=== PATIENT | male | born 1985 | race Caucasian/White ===

== ENCOUNTER 2016-09-26 07:28 | Emergency (ER) | payer SELFPAY ==
[~2016-09-26] VITALS: Ht 182.9 cm; Wt 74.2 kg
[2016-09-26 07:33] VITALS: BP 130/87
[2016-09-26] MEDS ORDERED: IBUP200T5 PO (07:49)
[2016-09-26] MEDS ORDERED: KETOROLAC 30 MG/1 ML ONE (07:51)
[2016-09-26] MEDS ORDERED: KETOROLAC 30 MG/1 ML IM ONE (08:00)
== END 2016-09-26 09:43 | disposition home or self-care (01) ==
LOC: ED 08:54
DX: M48.54XA Collapsed vertebra, not elsewhere classified, thoracic region, initial encounter for fracture (principal); M54.16 Radiculopathy, lumbar region; X58.XXXA Exposure to other specified factors, initial encounter; Y93.89 Activity, other specified; Y92.89 Other specified places as the place of occurrence of the external cause; Y99.8 Other external cause status
CPT/HCPCS: 72110; 96372; 99284; J1885

== ENCOUNTER 2016-10-08 20:48 | Emergency (ER) | payer SELFPAY ==
[~2016-10-08] VITALS: Ht 182.9 cm; Wt 75.0 kg
[~2016-10-08 20:48] MED LIST: IBUP200T5 PO
[2016-10-08] MEDS ORDERED: KETOROLAC 30 MG/1 ML IM ONE (21:30)
[2016-10-08] MEDS ORDERED: DIAZEPAM 5 MG TABLET PO ONE (21:30)
[2016-10-08] MEDS ORDERED: HYDROcodone/APAP 5/325 TABLET PO ONE (21:30)
[2016-10-08] MEDS ORDERED: DIAZEPAM 5 MG TABLET ONE (21:42)
[2016-10-08] MEDS ORDERED: KETOROLAC 30 MG/1 ML ONE (21:43)
[2016-10-08] MEDS ORDERED: HYDROcodone/APAP 5/325 TABLET ONE (21:43)
[2016-10-08 22:19] VITALS: BP 144/80
== END 2016-10-08 22:22 | disposition home or self-care (01) ==
LOC: ED 22:03
DX: S39.012A Strain of muscle, fascia and tendon of lower back, initial encounter (principal); X58.XXXA Exposure to other specified factors, initial encounter; Y93.89 Activity, other specified; Y92.89 Other specified places as the place of occurrence of the external cause; Y99.9 Unspecified external cause status
CPT/HCPCS: 96372; 99283; J1885